=== PATIENT | female | born 1945 | race Caucasian/White ===

== ENCOUNTER → 2017-11-18 | Outpatient (CLI) | payer MEDICARE ==
[~2017-11-18] MED LIST: ADVI200T17 PO; ALBU6.7H INH; CALC1TAB87 PO; CHLO4TAB PO; FISHCAP4 PO; FLUT1INH INH; LIVA4TAB PO; MONT10TA2 PO; NEUR100C PO; TRAM50TA PO
[2017-11-18 11:20] LABS: HEMATOCRIT 38.7 % (35.0-46.0); HEMOGLOBIN 12.9 GM/DL (11.6-15.3); MEAN CELL VOLUME 92.1 FL (80.0-100.0); MEAN CORPUSCULAR HEMOGLOBIN 30.7 PG (27.0-34.0); MEAN CORPUSCULAR HGB CONC 33.3 % (32.0-36.0); MEAN PLATELET VOLUME 7.2 FL (7.0-11.0); PLATELET COUNT 388 TH/MM3 (150-450); RED CELL DISTRIBUTION WIDTH 13.6 % (11.6-17.2); WHITE BLOOD COUNT 6.9 TH/MM3 (4.0-11.0)
[2017-11-18 11:29] LABS: PROTHROMBIN TIME - PATIENT 10.1 SEC (9.8-11.6)
[2017-11-18 11:48] LABS: BILIRUBIN, URINE NEG (NEG); BLOOD, URINE TRACE (NEG); GLUCOSE,URINE NEG (NEG); KETONE, URINE NEG (NEG); NITRITE,URINE NEG (NEG); PH, URINE 5.5 (5.0-8.5); RENAL EPITHELIAL CELLS <1 /hpf; SQUAMOUS EPITHELIAL CELL URINE 1 /hpf (0-5); URINE LEUKOCYTE ESTERASE NEG (NEG)
[2017-11-18 11:49] LABS: URINE COLOR STRAW (YELLW/STRAW)
[2017-11-18 12:17] LABS: BICARBONATE 29.6 MEQ/L (21.0-32.0); CALCIUM 9.4 MG/DL (8.5-10.1); CREATININE 0.75 MG/DL (0.50-1.00)
== END ==
LOC: CPRE 09:57
PROVIDERS: ATTEND Orthopaedic Surgery
DX: Z01.812 Encounter for preprocedural laboratory examination (principal); M79.609 Pain in unspecified limb; M16.12 Unilateral primary osteoarthritis, left hip
CPT/HCPCS: 36415; 80048; 81001; 85027; 85610; 85730

== ENCOUNTER 2017-11-28 05:30 | Inpatient (IN) | payer MEDICARE ==
[~2017-11-28] VITALS: Ht 160 cm; Wt 70.5 kg
[~2017-11-28 05:30] MED LIST changes: -FLUT1INH INH
[2017-11-28] MEDS ORDERED: PROPOFOL 500 MG/50 ML INJ 50 ML ONE (05:58)
[2017-11-28] MEDS ORDERED: ACETAMINOPHEN 1000 MG/100 ML 100 ML IV ONE (05:58)
[2017-11-28] MEDS ORDERED: GENTAMICIN SULFATE 80 MG/2 ML VIAL ONE (05:59)
[2017-11-28] MEDS ORDERED: METOPROLOL TARTRATE 25 MG TAB PO PRN (06:00)
[2017-11-28] MEDS ORDERED: POVIDONE IODINE 5% (ANTISEPSIS KIT) 4 APPLICATIONS EACH NARE PRN (06:00)
[2017-11-28] MEDS ORDERED: CHLORHEXIDINE GLUCONATE 2 % 1 PACK (2 CLOTHS) TOPICAL PRN (06:00)
[2017-11-28] MEDS ORDERED: LACTATED RINGER'S 1000 ML IV PRN (06:00)
[2017-11-28] MEDS ORDERED: SODIUM CHLORID 0.9% 500 ML IV PRN (06:00)
[2017-11-28] MEDS ORDERED: FLUT1INH INH (06:10)
[2017-11-28] MEDS ORDERED: EXPAREL PERI-ARTICULAR INJECTION (TOTAL VOL. 60 ML) P-ARTICULR SCH ×2 (06:15)
[2017-11-28] MEDS ORDERED: ceFAZolin 2 GM PREMIX 50 ML IV SCH (06:15)
[2017-11-28] MEDS ORDERED: CHLORHEXIDINE GLUCONATE 4% SOLN 120 ML BTL TOPICAL SCH (06:15)
[2017-11-28] MEDS ORDERED: TRANEXAMIC ACID INJ 705 MG in SODIUM CHLORIDE 0.9% INJ 100 ML IV SCH ×4 (06:15)
[2017-11-28] MEDS ORDERED: BUPIVACAINE PF 0.75% DEX-WATER INJ 2 ML AMP ONE (06:22)
[2017-11-28] MEDS ORDERED: ALBUTEROL SULFATE 90 MCG/ACT HFA 8 GM INHALER INH PRN (06:45)
[2017-11-28] MEDS ORDERED: CHLORPHENIRAMINE 4 MG PO PRN (06:45)
[2017-11-28] MEDS ORDERED: GABAPENTIN 100 MG CAP PO SCH (09:00)
[2017-11-28] MEDS: MONTELUKAST SODIUM 10 MG TAB PO SCH (09:00)
[2017-11-28] MEDS ORDERED: NON-FORMULARY DRUG (Fish Oil-Cholecalciferol (Fish Oil + D3) 1 CAP) PO SCH (09:00)
[2017-11-28] MEDS: FLUTICASONE 100 MCG/VILANTEROL 25 MCG INHALER INH SCH (09:00)
[2017-11-28] MEDS ORDERED: HYDROmorphone HCL 2 MG TAB PO PRN (09:15)
[2017-11-28] MEDS ORDERED: Post-op Orders (for Pharmacy) XX ONE (09:15)
[2017-11-28] MEDS ORDERED: TRANEXAMIC ACID INJ 0 MG in SODIUM CHLORIDE 0.9% INJ 100 ML IV SCH (09:15)
[2017-11-28] MEDS ORDERED: BISACODYL 10 MG SUPP RECTAL PRN (09:15)
[2017-11-28] MEDS ORDERED: ONDANSETRON HCL 4 MG/2 ML VIAL IVP PRN (09:15)
[2017-11-28] MEDS ORDERED: HYDROmorphone HCL PF 2 MG/ML VIAL IV PUSH PRN (09:15)
[2017-11-28] MEDS ORDERED: ZOLPIDEM TARTRATE 5 MG TAB PO PRN (09:15)
--- NOTE | 2017-11-28 09:23 | HHI.FF ---
Face to Face Verification Diagnosis: (1) Status post total replacement of left hip Physical Therapy Hip: Total hip, Protocol: Left, Posterior hip precautions, Progress to weight bearing Canvas Knee Splint: When in bed & 2 pillows btw thighs Left LE Weight Bearing: WB as tolerated Left LE Range of Motion: Active ROM Nursing Nursing: Dressing changes Dressing Changes: Daily dressing change, Coverderm/Primapore Additional Instructions Do not remove the Dermabond Prinio. I have seen patient Arline Smiley on 11/28/17. My clinical findings support the need for the requested home health care services because: Ltd mobility - disease progression Limited ability to care for self High risk of falls I certify that my clinical findings support that this patient is homebound because: Post-op weakness Unsteady gait/balance Unsafe to leave home unassisted Ashlyn Melo MD (Charles) Nov 28, 2017 09:23
[2017-11-28] MEDS ORDERED: DO NOT ADM ANY ANTICOAGULANT DRUGS PRN (09:26)
--- NOTE | 2017-11-28 09:32 | PD.OP ---
Operative Report Date of Surgery: Nov 29, 2017 Preoperative Diagnosis: (1) Primary osteoarthritis of left hip Postoperative Diagnosis: (1) Primary osteoarthritis of left hip Procedure: Left total hip arthroplasty using [place] prosthesis. Anesthesia: Spinal with supplemental local with bupivacaine liposomal Surgeon: Colton Melo MD Test Specialist(s): ORACIO Lozano Operation and Findings: Indications and Findings: This 72-year-old woman has a 2-1/2 year history of progressively worsening pain in her left hip to the point that she has an ambulation tolerance of one half block. She has groin pain and lateral pain. She has difficulty with activities of daily living, especially standing from a seated position and vice versa as well as stair climbing. She uses a cart when she walks. She has not responded to conservative measures including anti- inflammatory agents intra-articular corticosteroids exercises ambulatory aids. Physical findings showed limited range of motion in the hip with tenderness on motion. She has an antalgic gait. X-rays show loss of articular cartilage and [id number] with osteophytes and irregularity in the femoral head. Operative findings showed that there was significant degenerative change with loss of articular cartilage with [id number]-[id number], osteophytes and eburnation. The prosthesis used was a Erika prosthesis with the acetabulum being a Tritanium cluster shell size 48 mm outer diameter with an X3 polyethylene 0 liner with a 32 mm inner diameter. The femoral component was an Accolade 2 femoral stem with a 132 neck angle, size 2. The femoral head was a Biolox delta 32 mm outer diameter with a -4 mm neck length. The patient was brought to the clean air operating suite and a spinal anesthetic was administered. The patient was then positioned into a lateral position with the left hip up on a [email or web address] lateral positioner. The hip and lower extremity were then prepped with alcohol, Hibiclens and ChloraPrep and draped in the usual manner with the hip draped free. Patient received prophylactic antibiotics preoperatively. The patient also received tranexamic acid preoperatively. An appropriate timeout procedure was carried out. An incision was then made from the midportion of the greater trochanter proximally and posteriorly paralleling the fibers of the gluteus araceli. The incision was deepened through subcutaneous tissues down to the fascia alejandro and gluteus fascia. The gluteus fascia was then split longitudinally in line with its fibers up to the upper portion of the fascia alejandro. With wound towels in place, the Charnley retractor was inserted. The sciatic nerve was identified and protected throughout the procedure. Dissection was then carried down to the interval between the gluteus minimus and the piriformis. A retractor was inserted. The piriformis and obturator conjoined tendon was released from the greater trochanter and reflected off the capsule. A capsulotomy was made longitudinally along the femoral neck to the base of the femoral neck and then curved distally along the posterior aspect of the greater trochanter. The hip was then internally rotated. Further release of the external rotators was carried out exposing the hip. The hip was then dislocated. The femoral neck was transected at the appropriate level using the oscillating saw placement of appropriate retractors. The femoral head was then removed. Preparation of the femur was initiated with a box osteotome followed by a curet to identify the medullary canal. Broaching was then initiated with the size 0 broach and went and 1 size increments up to size 2. The broach handle was removed. The femoral neck was then trimmed with a calcar planar. Attention was then directed to the acetabulum. Soft tissues were debrided from the acetabulum. Retractors were placed about the acetabulum. Reaming was then initiated with the 41 millimeter reamer and went in 2 mm increments up to the 45 millimeter diameter reamer after which reaming went in 1 mm increments to size 47 mm. A trial reduction with the 48 millimeter trial prosthesis was carried out. When this was deemed to be appropriate, the trial prosthesis was removed. The acetabulum was then irrigated and cleaned. The actual prosthesis as noted above was then impacted into place and seated appropriately. Drill holes were then made and sounded. Appropriate sized screws were then inserted to stabilize the acetabulum further. The liner as noted above was then inserted into the acetabular shell and impacted into place. Osteophytes were trimmed from the acetabulum. Local anesthetic was then administered throughout the area of the acetabulum and anterior aspect of the femur. The trial neck was then placed on the broach for the above-noted prosthesis. The femoral head trial was placed onto the femoral neck with the external diameter of the head being 32 millimeters and the neck length being -4 millimeters. A trial reduction was then carried out. The stability, leg length and motion were excellent. There was no pistoning. The trial prosthesis was removed. The broach was removed. The femoral component was then impacted into the medullary canal of the femur after irrigation and suctioning. When this was appropriately seated a trial reduction was again carried out with the trial prosthesis. Again, there was no pistoning. The leg length was appropriate. The stability and motion were excellent. The trial prosthesis was then removed. After cleaning and drying the trunion of the femoral component, the above-noted femoral head was impacted onto the trunnion. The hip was then reduced. The stability and mobility were again checked along with leg lengths as noted above. The hip was then positioned appropriately and closure commenced after the remainder of the local anesthetic was injected throughout the hip. The external rotators and capsule were then repaired with #1 Vicryl interrupted transosseous sutures with a Krakw technique to reattach the external rotators and capsule to the posterior aspect of the greater trochanter. The capsule itself on the superior aspect was closed with #1 Vicryl interrupted [id number] sutures. The sciatic nerve was again inspected. The fascia alejandro and gluteus fascia were then repaired with #1 Vicryl interrupted [id number] sutures. The subcutaneous tissues were closed with 2-0 Vicryl interrupted simple sutures with buried knots. The skin was closed with a continuous subcuticular closure of 4-0 Monocryl. The wound was then approximated with Dermabond Prineo. A dry dressing was applied to the hip. A knee immobilizer was applied to the leg. The patient was then transferred from the operating room to the recovery room in satisfactory condition having tolerated the procedure well. Counts are correct. Specimens: None. Estimated blood loss: 200 mL Ashlyn Melo MD (Charles) Nov 28, 2017 09:32
[2017-11-28] MEDS ORDERED: MIDAZOLAM HCL 2 MG/2 ML VIAL ONE (09:37)
[2017-11-28] MEDS ORDERED: HYDROmorphone HCL PF 0.5 MG/0.5 ML SYRINGE ONE ×2 (09:48→11:41)
[2017-11-28] MEDS: LACTATED RINGER'S 1000 ML INJ 1,000 ML IV SCH ×2 (10:00→21:44)
--- NOTE | 2017-11-28 11:03 | RADRPT ---
EXAM DATE/TIME: 11/28/2017 09:42 [facility] COMPARISON: No previous studies available for comparison. INDICATIONS : Post op left hip MEDICAL HISTORY : None. SURGICAL HISTORY : None. ENCOUNTER: Initial ACUITY: 1 day PAIN SCORE: Non-responsive. LOCATION: Left hip FINDINGS: The patient is status post a total hip arthroplasty with a bipolar prosthesis. Prosthesis is well-sea maye. Alignment is anatomic. A fracture is not appreciated. CONCLUSION: Anatomic alignment. Mark Garcia MD FACR Board Certified Radiologist. This report was verified electronically.
[2017-11-28] MEDS ORDERED: MAGNESIUM HYDROXIDE SUSP 30 ML CUP PO PRN (12:30)
[2017-11-28] MEDS ORDERED: PILL SPLITTER OTHER PRN (14:45)
[2017-11-28] MEDS: traMADol HCL 50 MG TAB PO PRN ×2 (16:00→23:23)
[2017-11-28 16:07] VITALS: BP 146/66; PULSE 115; RESP 17; TEMP 98.3; O2SAT 94
--- NOTE | 2017-11-28 16:45 | PD.CONS ---
HPI Service [facility] Consult Requested By Dr. Melo Reason for Consult Medical management Primary Care Physician Netta Iyer MD Diagnoses: History of Present Illness The patient is a 72-year-old female with past medical history of arthritis and hypertension who is presenting to the hospital for elective left hip arthroplasty. The patient says that about a year ago she came down with left hip pain. She says her pain got worse starting this past April. She says she has been doing a lot of hiking and climbing places such as [place] and the [employer]. Her hip pain seemed to get worse secondary to that. She has been taking Advil for pain control. She got a Kenalog injection. She worked with physical therapy. She also has been experiencing nerve pain. She decided to get her hip repaired. She tolerated the surgery without any problem. She is not nauseous. Her pain is controlled. She had a bowel movement yesterday. She already worked with physical therapy. Discussed with family. Review of Systems Except as stated in HPI: all other systems reviewed are Neg Past Family Social History Allergies: Coded Allergies: [place] Dust (Verified Allergy, Severe, Wheezing, 11/28/17) Smoke (Verified Allergy, Severe, Wheezing, 11/28/17) Sulfa (Sulfonamide Antibiotics) (Verified Allergy, Severe, Shortness of Breath, 11/28/17) adhesive tape (Verified Allergy, Severe, Rash, 11/28/17) aspartame (Verified Allergy, Severe, Hives, 11/28/17) aspirin (Verified Allergy, Severe, Dyspepsia, 11/28/17) cat dander (Verified Allergy, Severe, Wheezing, 11/28/17) codeine (Verified Allergy, Severe, Irritation, 11/28/17) vomiting, hallucinations diphenhydramine (Verified Allergy, Severe, Cramping, 11/28/17) hydrocodone (Verified Allergy, Severe, Itching, 11/28/17) vomiting, hallucinations losartan (Verified Allergy, Severe, Cramping, 11/28/17) meloxicam (Verified Allergy, Severe, 11/28/17) pelvic pain nitrofurantoin (Verified Allergy, Severe, Shortness of Breath, 11/28/17) chest pain omeprazole (Verified Allergy, Severe, Hives, 11/28/17) oxycodone (Verified Allergy, Severe, Itching, 11/28/17) vomiting, hallucinations oyster extract (Verified Allergy, Severe, Chest Pain, 11/28/17) shortness of breath, temp pollen extracts (Verified Allergy, Severe, Hives, 11/28/17) simvastatin (Verified Allergy, Severe, Cramping, 11/28/17) soy (Verified Allergy, Severe, Hives, 11/28/17) chlorhexidine (Verified Allergy, Unknown, Rash, 11/28/17) Past Medical History Hypertension Hyperlipidemia Osteoarthritis Asthma Pulmonary embolism Neuropathy Active Ordered Medications Current Medications Medications (Trade) Dose Ordered Sig/Pepito Route Start Time Stop Time Status Last Admin (Lopressor) 25 mg SUPERVISOR FRAME SAMPLE AND PATTERN PRN PO 11/28/17 06:00 12/01/17 05:59 (Betadine 5% Antisepsis Kit) 1 applic SUPERVISOR FRAME SAMPLE AND PATTERN PRN EACH NARE 11/28/17 06:00 12/01/17 05:59 11/28/17 06:31 (Chlorhexidine 2% Cloth) 3 pack SUPERVISOR FRAME SAMPLE AND PATTERN PRN TOPICAL 11/28/17 06:00 12/01/17 05:59 (Hibiclens 4% Top Soln) 1 applic ONCE TOPICAL 11/28/17 06:15 12/01/17 06:14 Cefazolin Sodium/ Dextrose 50 ml @ 100 mls/hr SUPERVISOR FRAME SAMPLE AND PATTERN IV 11/28/17 06:15 12/01/17 06:14 11/28/17 07:10 (Proair Hfa Inh) 2 puff Q4HR NEB PRN INH 11/28/17 06:45 (Breo Ellipta 100-25 Inh) 1 puff DAILY INH 11/28/17 09:00 (Neurontin) 200 mg BID PO 11/28/17 09:00 (Singulair) 10 mg DAILY PO 11/28/17 09:00 Patient Own Medication PT OWN MED: LIVALO (PITAVASTAT... HS PO 11/28/17 21:00 Future Hold Lactated Ringer's 1,000 ml @ 80 mls/hr [id number] IV 11/28/17 09:14 11/28/17 10:00 Cefazolin Sodium 1000 mg/Sodium Chloride 100 ml @ 200 mls/hr Q6H IV 11/28/17 13:00 11/29/17 01:29 11/28/17 15:00 (Dilaudid Pf Inj) 0.5 mg Q3H PRN IV PUSH 11/28/17 09:15 (Ultram) 50 mg Q4H PRN PO 11/28/17 09:15 11/28/17 16:00 (Toradol Inj) 15 mg Q6H IVP 11/28/17 16:30 11/30/17 10:31 (Zofran Inj) 4 mg Q6H PRN IVP 11/28/17 09:15 (Colace) 100 mg BID PO 11/29/17 21:00 (Ambien) 5 mg HS PRN PO 11/28/17 09:15 (Dulcolax Supp) 10 mg DAILY PRN RECTAL 11/28/17 09:15 (Milk Of Magnesia Liq) 30 ml DAILY PRN PO 11/28/17 12:30 (Ecotrin Ec) 81 mg BIDAC PO 11/29/17 08:30 (Dilaudid) 1 mg Q4H PRN PO 11/28/17 09:15 11/28/17 14:55 Miscellaneous Information ALL NURSING DEPARTME... UNSCH PRN .XX 11/28/17 09:26 11/29/17 09:25 (Pill Splitter) 1 ea UNSCH PRN OTHER 11/28/17 14:45 Family History CAD Social History The patient quit smoking in the s. She drinks 1 cocktail daily. Physical Exam Vital Signs Vital Signs Date Time Temp Pulse Resp B/P (MAP) Pulse Ox O2 Delivery O2 Flow Rate FiO2 11/28/17 16:07 98.3 115 17 146/66 (92) 94 11/28/17 15:00 97.9 84 18 154/68 (96) 96 Nasal Cannula 2 11/28/17 14:00 78 18 135/68 (90) 96 Nasal Cannula 2 11/28/17 13:00 97.7 87 18 143/62 (89) 96 Nasal Cannula 2 11/28/17 12:00 68 18 137/63 (87) 90 Nasal Cannula 2 11/28/17 11:30 65 18 141/65 (90) 96 Room Air 11/28/17 11:15 68 18 148/65 (92) 96 Room Air 11/28/17 11:00 68 18 148/65 (92) 96 Room Air 11/28/17 10:45 66 18 128/77 (94) 96 Room Air 11/28/17 10:31 97.4 11/28/17 10:31 97.4 67 18 148/65 (92) 96 Room Air 11/28/17 10:15 59 18 136/60 (85) 95 Room Air 11/28/17 10:00 60 18 109/53 (71) 94 Room Air 11/28/17 09:45 63 18 139/65 (89) 100 Room Air 11/28/17 09:29 61 16 154/66 (95) 99 Simple Mask 6 11/28/17 06:24 98.1 78 18 158/76 (103) 96 Physical Exam GENERAL: This is a well-nourished, well-developed patient, in no apparent distress. SKIN: No rashes, ecchymoses or lesions. Cool and dry. HEAD: Atraumatic. Normocephalic. No temporal or scalp tenderness. EYES: Pupils equal round and reactive. Extraocular motions intact. No scleral icterus. No injection or drainage. ENT: Nose without bleeding, purulent drainage or septal hematoma. Throat without erythema, tonsillar hypertrophy or exudate. Uvula midline. Airway patent. NECK: Trachea midline. No JVD or lymphadenopathy. Supple, nontender, no meningeal signs. CARDIOVASCULAR: Regular rate and rhythm without murmurs, gallops, or rubs. RESPIRATORY: Clear to auscultation. Breath sounds equal bilaterally. No wheezes , rales, or rhonchi. GASTROINTESTINAL: Abdomen soft, non-tender, nondistended. No hepato-splenomegaly , or palpable masses. No guarding. MUSCULOSKELETAL: Left leg currently in splint. Nontender to palpation. No edema in the right lower extremity. NEUROLOGICAL: Awake and alert. Cranial nerves II through XII intact. Motor and sensory grossly within normal limits. Five out of 5 muscle strength in all muscle groups. Normal speech. PSYCH: Mood and affect appropriate. Imaging Last Impressions Hip X-Ray 11/28/17 0914 Signed Impressions: Service Date/Time: Tuesday, November 28, 2017 09:42 - CONCLUSION: Anatomic alignment. Mark Garcia MD Assessment and Plan Assessment and Plan Osteoarthritis S/p left hip arthroplasty 11/28. - weightbearing, wound care and anticoagulation per orthopedic surgery. - pain control with a bowel regimen. - follow h/h. - incentive spirometry. - rehab efforts. HTN Blood pressure elevated s/t surgery. - pain control as needed. - allergic to most blood pressure meds. Asthma No complaints of dyspnea. - Proair and oxygen as needed. Neuropathy On gabapentin as an outpt. She still complains of nerve pain. - increase dose to 300 mg TID. PPx: Per ortho Discussed Condition With Pt, family Kraig Crain DO Nov 28, 2017 16:45
[2017-11-28] MEDS: KETOROLAC TROMETHAMINE 30 MG/ML (IVP) VIAL IVP SCH ×2 (17:46→23:24)
[2017-11-28] MEDS: GABAPENTIN 100 MG CAP PO SCH (17:57)
[2017-11-28 19:54] VITALS: BP 149/67; PULSE 97; RESP 18; TEMP 98.2; O2SAT 93
[2017-11-28] MEDS ORDERED: PITAVASTATIN PO SCH (21:00)
[2017-11-28 23:17] VITALS: BP 134/62; PULSE 88; RESP 18; TEMP 98.1; O2SAT 95
[2017-11-29] MEDS: KETOROLAC TROMETHAMINE 30 MG/ML (IVP) VIAL IVP SCH ×4 (04:44→21:45)
[2017-11-29] MEDS: traMADol HCL 50 MG TAB PO PRN ×3 (04:45→16:51)
[2017-11-29 05:25] VITALS: BP 190/79; PULSE 77; RESP 18; TEMP 98.2; O2SAT 93
--- NOTE | 2017-11-29 05:53 | PD.ORT.PN ---
Subjective Post Op Day #: 1 Subjective Remarks She is doing relatively well but does continue to have some pain. She has pain whenever she moves but not much when she is still. This has been relatively well controlled with the medications ordered. She has avoided Dilaudid. Distance Walked 20 feet with PT. Objective Vitals Vital Signs Date Time Temp Pulse Resp B/P (MAP) Pulse Ox O2 Delivery O2 Flow Rate FiO2 11/28/17 23:17 98.1 88 18 134/62 (86) 95 11/28/17 19:54 98.2 97 18 149/67 (94) 93 11/28/17 16:07 98.3 115 17 146/66 (92) 94 11/28/17 15:00 97.9 84 18 154/68 (96) 96 Nasal Cannula 2 11/28/17 14:00 78 18 135/68 (90) 96 Nasal Cannula 2 11/28/17 13:00 97.7 87 18 143/62 (89) 96 Nasal Cannula 2 11/28/17 12:00 68 18 137/63 (87) 90 Nasal Cannula 2 11/28/17 11:30 65 18 141/65 (90) 96 Room Air 11/28/17 11:15 68 18 148/65 (92) 96 Room Air 11/28/17 11:00 68 18 148/65 (92) 96 Room Air 11/28/17 10:45 66 18 128/77 (94) 96 Room Air 11/28/17 10:31 97.4 11/28/17 10:31 97.4 67 18 148/65 (92) 96 Room Air 11/28/17 10:15 59 18 136/60 (85) 95 Room Air 11/28/17 10:00 60 18 109/53 (71) 94 Room Air 11/28/17 09:45 63 18 139/65 (89) 100 Room Air 11/28/17 09:29 61 16 154/66 (95) 99 Simple Mask 6 11/28/17 06:24 98.1 78 18 158/76 (103) 96 I/O 11/28/17 11/28/17 11/28/17 11/29/17 11/29/17 11/29/17 07:00 15:00 23:00 07:00 15:00 23:00 Intake Total 3307 ml 800 ml Output Total 200 ml 300 ml Balance 3107 ml 500 ml Intake Oral 500 ml IV Total 3307 ml 300 ml Output Urine Total 300 ml Estimated Blood Loss 200 ml # Voids 1 1 Imaging Last 24 hours Impressions Hip X-Ray 11/28/17 0914 Signed Impressions: Service Date/Time: Tuesday, November 28, 2017 09:42 - CONCLUSION: Anatomic alignment. Mark Garcia MD Objective Remarks She is resting comfortably, supine in bed. The neurovascular status is intact. The dressing is dry and intact. Assessment & Plan Ortho Post Op Day #: 1 Problem List: (1) Primary osteoarthritis of left hip ICD Codes: M16.12 - Unilateral primary osteoarthritis, left hip Status: Resolved (2) Status post total replacement of left hip ICD Codes: Z96.642 - Presence of left artificial hip joint Plan: Continue postop care and PT. Assessment and Plan Condition: Good. Orthopedically stable. DVT prophylaxis: TEDs, aspirin, sequentials. We have discussed the use of aspirin. She has had gastrointestinal problems with it in the past and, other than when she was or using Prempro, she has had no problems with DVT. She has previously been on aspirin 81 mg twice a week. This will probably be adequate for her. Discharge plans: Home with home health care, probably tomorrow but possibly today. An appointment was scheduled through the office. Prescriptions: Tramadol 50 mg. We have discussed the use of analgesics. She is reluctant to use Dilaudid and seems to do fairly well with her gabapentin and tramadol. For this reason, we will continue with this after discharge. Ashlyn Melo MD (Charles) Nov 29, 2017 05:53
[2017-11-29 07:02] LABS: HEMATOCRIT 32.2 % (35.0-46.0); HEMOGLOBIN 10.7 GM/DL (11.6-15.3)
[2017-11-29 08:17] VITALS: BP 156/68; PULSE 72; RESP 18; TEMP 98; O2SAT 96
[2017-11-29] MEDS: FLUTICASONE 100 MCG/VILANTEROL 25 MCG INHALER INH SCH (09:00)
[2017-11-29] MEDS: MONTELUKAST SODIUM 10 MG TAB PO SCH (09:18)
[2017-11-29] MEDS: GABAPENTIN 100 MG CAP PO SCH ×3 (09:18→16:52)
[2017-11-29] MEDS: ASPIRIN EC 81 MG TABEC PO SCH ×2 (09:21→16:52)
[2017-11-29] MEDS: LACTATED RINGER'S 1000 ML INJ 1,000 ML IV SCH ×2 (10:14→22:44)
[2017-11-29 11:56] VITALS: BP 149/65; PULSE 71; RESP 17; TEMP 98.3; O2SAT 95
--- NOTE | 2017-11-29 12:01 | HHI.PR ---
Subjective Remarks The patient is a 72-year-old female with past medical history of arthritis and hypertension who is presenting to the hospital for elective left hip arthroplasty. The patient says that about a year ago she came down with left hip pain. She says her pain got worse starting this past April. She says she has been doing a lot of hiking and climbing places such as [place] and the [place]. Her hip pain seemed to get worse secondary to that. She has been taking Advil for pain control. She got a Kenalog injection. She worked with physical therapy. She also has been experiencing nerve pain. She decided to get her hip repaired. She tolerated the surgery without any problem. She is not nauseous. Her pain is controlled. She had a bowel movement yesterday. She already worked with physical therapy. Discussed with family. 11-29 SEEN IN HER ROOM SOME PAIN IN LEFT HIP NO SOB, NO CHEST PAIN, NO PALPITATIONS DW RN AND CM AND PATIENT Objective Vitals Vital Signs Date Time Temp Pulse Resp B/P (MAP) Pulse Ox O2 Delivery O2 Flow Rate FiO2 11/29/17 08:17 98.0 72 18 156/68 (97) 96 11/29/17 05:25 98.2 77 18 190/79 (116) 93 11/28/17 23:17 98.1 88 18 134/62 (86) 95 11/28/17 19:54 98.2 97 18 149/67 (94) 93 11/28/17 16:07 98.3 115 17 146/66 (92) 94 11/28/17 15:00 97.9 84 18 154/68 (96) 96 Nasal Cannula 2 11/28/17 14:00 78 18 135/68 (90) 96 Nasal Cannula 2 11/28/17 13:00 97.7 87 18 143/62 (89) 96 Nasal Cannula 2 11/28/17 12:00 68 18 137/63 (87) 90 Nasal Cannula 2 I/O 11/28/17 11/28/17 11/28/17 11/29/17 11/29/17 11/29/17 07:00 15:00 23:00 07:00 15:00 23:00 Intake Total 3307 ml 800 ml 360 ml Output Total 200 ml 300 ml Balance 3107 ml 500 ml 360 ml Intake Oral 500 ml 360 ml IV Total 3307 ml 300 ml Output Urine Total 300 ml Estimated Blood Loss 200 ml # Voids 1 1 2 # Bowel Movements 0 Result Diagram: 11/29/17613 Other Results Laboratory Tests Test 11/29/17 06:14 Hemoglobin 10.7 GM/DL Hematocrit 32.2 % Imaging Last Impressions Hip X-Ray 11/28/17913 Signed Impressions: Service Date/Time: Tuesday, November 28, 2017 09:42 - CONCLUSION: Anatomic alignment. Mark Garcia MD Objective Remarks GENERAL: Awake alert and oriented 3 talkative and cooperative SKIN: Warm and dry. Some facial flushing HEAD: Atraumatic. Normocephalic. EYES: Pupils equal and round. No scleral icterus. No injection or drainage. Extraocular muscles intact ENT: No nasal bleeding or discharge. Mucous membranes pink and moist. Tongue is midline NECK: Trachea midline. No JVD. Supple CARDIOVASCULAR: Regular rate and rhythm. S1-S2 no S3-S4 RESPIRATORY: No accessory muscle use. Clear to auscultation. Breath sounds equal bilaterally. GASTROINTESTINAL: Abdomen soft, non-tender, nondistended. Hepatic and splenic margins not palpable. MUSCULOSKELETAL: Extremities without clubbing, cyanosis, or edema. No obvious deformities. NEUROLOGICAL: Awake and alert. No obvious cranial nerve deficits. Motor grossly within normal limits. Five out of 5 muscle strength in the arms and legs. Normal speech. PSYCHIATRIC: Appropriate mood and affect; insight and judgment normal. Procedures Date of Surgery: Nov 28, 2017 Preoperative Diagnosis: (1) Primary osteoarthritis of left hip Postoperative Diagnosis: (1) Primary osteoarthritis of left hip Procedure: Left total hip arthroplasty using [place] prosthesis. Anesthesia: Spinal with supplemental local with bupivacaine liposomal Surgeon: Colton Melo MD Manager Front(s): ORACIO Lozano Operation and Findings: Indications and Findings: This 72-year-old woman has a 2-1/2 year history of progressively worsening pain in her left hip to the point that she has an ambulation tolerance of one half block. She has groin pain and lateral pain. She has difficulty with activities of daily living, especially standing from a seated position and vice versa as well as stair climbing. She uses a cart when she walks. She has not responded to conservative measures including anti- inflammatory agents intra-articular corticosteroids exercises ambulatory aids. Physical findings showed limited range of motion in the hip with tenderness on motion. She has an antalgic gait. X-rays show loss of articular cartilage and [id number] with osteophytes and irregularity in the femoral head. Operative findings showed that there was significant degenerative change with loss of articular cartilage with [id number], osteophytes and eburnation. The prosthesis used was a Erika prosthesis with the acetabulum being a Tritanium cluster shell size 48 mm outer diameter with an X3 polyethylene 0 liner with a 32 mm inner diameter. The femoral component was an Accolade 2 femoral stem with a 132 neck angle, size 2. The femoral head was a Biolox delta 32 mm outer diameter with a -4 mm neck length. The patient was brought to the clean air operating suite and a spinal anesthetic was administered. The patient was then positioned into a lateral position with the left hip up on a ContraFect lateral positioner. The hip and lower extremity were then prepped with alcohol, Hibiclens and ChloraPrep and draped in the usual manner with the hip draped free. Patient received prophylactic antibiotics preoperatively. The patient also received tranexamic acid preoperatively. An appropriate timeout procedure was carried out. An incision was then made from the midportion of the greater trochanter proximally and posteriorly paralleling the fibers of the gluteus araceli. The incision was deepened through subcutaneous tissues down to the fascia alejandro and gluteus fascia. The gluteus fascia was then split longitudinally in line with its fibers up to the upper portion of the fascia alejandro. With wound towels in place, the Charnley retractor was inserted. The sciatic nerve was identified and protected throughout the procedure. Dissection was then carried down to the interval between the gluteus minimus and the piriformis. A retractor was inserted. The piriformis and obturator conjoined tendon was released from the greater trochanter and reflected off the capsule. A capsulotomy was made longitudinally along the femoral neck to the base of the femoral neck and then curved distally along the posterior aspect of the greater trochanter. The hip was then internally rotated. Further release of the external rotators was carried out exposing the hip. The hip was then dislocated. The femoral neck was transected at the appropriate level using the oscillating saw placement of appropriate retractors. The femoral head was then removed. Preparation of the femur was initiated with a box osteotome followed by a curet to identify the medullary canal. Broaching was then initiated with the size 0 broach and went and 1 size increments up to size 2. The broach handle was removed. The femoral neck was then trimmed with a calcar planar. Attention was then directed to the acetabulum. Soft tissues were debrided from the acetabulum. Retractors were placed about the acetabulum. Reaming was then initiated with the 41 millimeter reamer and went in 2 mm increments up to the 45 millimeter diameter reamer after which reaming went in 1 mm increments to size 47 mm. A trial reduction with the 48 millimeter trial prosthesis was carried out. When this was deemed to be appropriate, the trial prosthesis was removed. The acetabulum was then irrigated and cleaned. The actual prosthesis as noted above was then impacted into place and seated appropriately. Drill holes were then made and sounded. Appropriate sized screws were then inserted to stabilize the acetabulum further. The liner as noted above was then inserted into the acetabular shell and impacted into place. Osteophytes were trimmed from the acetabulum. Local anesthetic was then administered throughout the area of the acetabulum and anterior aspect of the femur. The trial neck was then placed on the broach for the above-noted prosthesis. The femoral head trial was placed onto the femoral neck with the external diameter of the head being 32 millimeters and the neck length being -4 millimeters. A trial reduction was then carried out. The stability, leg length and motion were excellent. There was no pistoning. The trial prosthesis was removed. The broach was removed. The femoral component was then impacted into the medullary canal of the femur after irrigation and suctioning. When this was appropriately seated a trial reduction was again carried out with the trial prosthesis. Again, there was no pistoning. The leg length was appropriate. The stability and motion were excellent. The trial prosthesis was then removed. After cleaning and drying the trunion of the femoral component, the above-noted femoral head was impacted onto the trunnion. The hip was then reduced. The stability and mobility were again checked along with leg lengths as noted above. The hip was then positioned appropriately and closure commenced after the remainder of the local anesthetic was injected throughout the hip. The external rotators and capsule were then repaired with #1 Vicryl interrupted transosseous sutures with a Krakw technique to reattach the external rotators and capsule to the posterior aspect of the greater trochanter. The capsule itself on the superior aspect was closed with #1 Vicryl interrupted [id number] sutures. The sciatic nerve was again inspected. The fascia alejandro and gluteus fascia were then repaired with #1 Vicryl interrupted [id number] sutures. The subcutaneous tissues were closed with 2-0 Vicryl interrupted simple sutures with buried knots. The skin was closed with a continuous subcuticular closure of 4-0 Monocryl. The wound was then approximated with Dermabond Prineo. A dry dressing was applied to the hip. A knee immobilizer was applied to the leg. The patient was then transferred from the operating room to the recovery room in satisfactory condition having tolerated the procedure well. Counts are correct. Specimens: None. Estimated blood loss: 200 mL Ashlyn Melo MD ([facility]) Medications and IVs Current Medications Lactated Ringer's 1,000 ml @ 30 mls/hr Q24H PRN IV SEE LABEL COMMENTS Last administered on 11/28/17at 06:00; Start 11/28/17 at 06:00; Stop 11/28/17 at 10:41 ; Status DC Sodium Chloride 500 ml @ 30 mls/hr [id number] PRN IV SEE LABEL COMMENTS; Start at 06:00; Stop 11/28/17 at 10:41; Status DC Metoprolol Tartrate (Lopressor) 25 mg SECURITIES COMPLIANCE EXAMINER PRN PO SEE LABEL COMMENTS; Start 11/28/17 at 06:00; Stop 12/01/17 at 05:59 Povidone Iodine (Betadine 5% Antisepsis Kit) 1 applic SECURITIES COMPLIANCE EXAMINER PRN EACH NARE SEE LABEL COMMENTS Last administered on 11/28/17at 06:31; Start 11/28/17 at 06:00 ; Stop 12/01/17 at 05:59 Chlorhexidine Gluconate (Chlorhexidine 2% Cloth) 3 pack SECURITIES COMPLIANCE EXAMINER PRN TOPICAL SEE LABEL COMMENTS; Start 11/28/17 at 06:00; Stop 12/01/17 at 05:59 Acetaminophen 100 ml @ As Directed STK-MED ONCE IV ; Start 11/28/17 at 05:58; Stop 11/28/17 at 05:59; Status DC Propofol 50 ml @ As Directed STK-MED ONCE .ROUTE ; Start 11/28/17 at 05:58; Stop 11/28/17 at 05:59; Status DC Chlorhexidine Gluconate (Hibiclens 4% Top Soln) 1 applic ONCE TOPICAL ; Start at 06:15; Stop 12/01/17 at 06:14 Cefazolin Sodium/ Dextrose 50 ml @ 100 mls/hr SECURITIES COMPLIANCE EXAMINER IV Last administered on 11/28/17at 07:10; Start 11/28/17 at 06:15; Stop 12/01/17 at 06:14 Tranexamic Acid 705 mg/Sodium Chloride 107.05 ml @ 200 mls/ hr ONCE IV Last administered on 11/28/17at 06:58; Start 11/28/17 at 06:15; Stop 11/28/17 at 14:00 ; Status DC Tranexamic Acid 705 mg/Sodium Chloride 107.05 ml @ 200 mls/ hr ONCE IV Last administered on 11/28/17at 11:09; Start 11/28/17 at 06:15; Stop 11/28/17 at 15:00 ; Status DC Bupivacaine Liposome 20 ml/ Sodium Chloride 60 ml @ 120 mls/hr ONCE P-ARTICULR Last administered on 11/28/17at 07:29; Start 11/28/17 at 06:15; Stop 11/28/17 at 14:00; Status DC Gentamicin Sulfate (Gentamicin Inj) 240 mg STK-MED ONCE .ROUTE Last administered on 11/28/17at 07:29; Start 11/28/17 at 05:59; Stop 11/28/17 at 06:00 ; Status DC Bupivacaine HCl/ Dextrose (Marcaine Spinal Inj) 2 ml STK-MED ONCE .ROUTE ; Start 11/28/17 at 06:22; Stop 11/28/17 at 06:23; Status DC Albuterol Sulfate (Proair Hfa Inh) 2 puff Q4HR NEB PRN INH SHORTNESS OF BREATH ; Start 11/28/17 at 06:45 Fluticasone/ Vilanterol (Breo Ellipta 100-25 Inh) 1 puff DAILY INH ; Start 11/28 at 09:00 Gabapentin (Neurontin) 200 mg BID PO ; Start 11/28/17 at 09:00; Stop 11/28/17 at 16:46; Status DC Montelukast Sodium (Singulair) 10 mg DAILY PO Last administered on 11/29/17at 09 :18; Start 11/28/17 at 09:00 Non-Formulary Medication 4 mg Q4H PRN PO Allergies; Start 11/28/17 at 06:45; Stop 11/28/17 at 08:51; Status DC Non-Formulary Medication 1 cap DAILY PO ; Start 11/28/17 at 09:00; Stop at 09:00; Status DC Patient Own Medication PT OWN MED: LIVALO (PITAVASTAT... HS PO ; Start 11/28/17 at 21:00; Status Future Hold Lactated Ringer's 1,000 ml @ 80 mls/hr [id number] IV Last administered on at 10:00; Start 11/28/17 at 09:14 Cefazolin Sodium 1000 mg/Sodium Chloride 100 ml @ 200 mls/hr Q6H IV Last administered on 11/29/17at 00:59; Start 11/28/17 at 13:00; Stop 11/29/17 at 01:29 ; Status DC Miscellaneous Information (Post-op Orders (for Pharmacy)) STAT ONCE XX ; Start 11/28/17 at 09:15; Stop 11/28/17 at 12:07; Status DC Hydromorphone HCl (Dilaudid Pf Inj) 0.5 mg Q3H PRN IV PUSH BREAKTHROUGH PAIN; Start 11/28/17 at 09:15 Tramadol HCl (Ultram) 50 mg Q4H PRN PO PAIN LESS THAN 5 ON SCALE Last administered on 11/29/17at 09:20; Start 11/28/17 at 09:15 Ketorolac Tromethamine (Toradol Inj) 15 mg Q6H IVP Last administered on at 04:44; Start 11/28/17 at 16:30; Stop 11/30/17 at 10:31 Tranexamic Acid / Sodium Chloride 100 ml @ 200 mls/hr UNSCH IV ; Start at 09:15; Stop 11/28/17 at 10:53; Status DC Ondansetron HCl (Zofran Inj) 4 mg Q6H PRN IVP NAUSEA OR VOMITING; Start at 09:15 Docusate Sodium (Colace) 100 mg BID PO ; Start 11/29/17 at 21:00 Zolpidem Tartrate (Ambien) 5 mg HS PRN PO SLEEP; Start 11/28/17 at 09:15 Bisacodyl (Dulcolax Supp) 10 mg DAILY PRN RECTAL CONSTIPATION; Start 11/28/17 at 09:15 Magnesium Hydroxide (Milk Of Magnarpan Liq) 30 ml DAILY PRN PO CONSTIPATION; Start 11/28/17 at 12:30 Aspirin (Ecotrin Ec) 81 mg BIDAC PO Last administered on 11/29/17at 09:21; Start 11/29/17 at 08:30 Hydromorphone HCl (Dilaudid) 1 mg Q4H PRN PO PAIN GREATER THAN 5 Last administered on 11/28/17at 14:55; Start 11/28/17 at 09:15 Midazolam HCl (Versed Inj) 2 mg STK-MED ONCE .ROUTE ; Start 11/28/17 at 09:37; Stop 11/28/17 at 09:38; Status DC Miscellaneous Information ALL NURSING DEPARTME... UNSCH PRN .XX SEE LABEL COMMENTS; Start 11/28/17 at 09:26; Stop 11/29/17 at 09:25; Status DC Hydromorphone HCl (Dilaudid Pf Inj) 0.5 mg STK-MED ONCE .ROUTE Last administered on 11/28/17at 09:48; Start 11/28/17 at 09:48; Stop 11/28/17 at 09:49 ; Status DC Hydromorphone HCl (Dilaudid Pf Inj) 0.5 mg STK-MED ONCE .ROUTE Last administered on 11/28/17at 11:41; Start 11/28/17 at 11:41; Stop 11/28/17 at 11:42 ; Status DC Miscellaneous (Pill Splitter) 1 ea UNSCH PRN OTHER SEE LABEL COMMENTS; Start at 14:45 Gabapentin (Neurontin) 300 mg TID PO Last administered on 11/29/17at 09:18; Start 11/28/17 at 18:00 A/P Assessment and Plan Osteoarthritis S/p left hip arthroplasty 11/28. - weightbearing, wound care and anticoagulation per orthopedic surgery. - pain control with a bowel regimen. - follow h/h. - incentive spirometry. - rehab efforts. HTN Blood pressure elevated s/t surgery. - pain control as needed. - allergic to most blood pressure meds. Asthma No complaints of dyspnea. - Proair and oxygen as needed. Neuropathy On gabapentin as an outpt. She still complains of nerve pain. - increase dose to 300 mg TID. PPx: Per ortho Discharge Planning Pending orthopedic clearance Mark Israel DO Nov 29, 2017 12:01
[2017-11-29 16:11] VITALS: BP 171/89; PULSE 83; RESP 18; TEMP 98; O2SAT 97
[2017-11-29 20:00] VITALS: BP 161/70; PULSE 78; RESP 16; TEMP 97.9; O2SAT 97
[2017-11-29] MEDS: DOCUSATE SODIUM 100 MG CAP PO SCH (20:15)
[2017-11-30] VITALS (8 sets, daily range): BP systolic 115–183; BP diastolic 53–81; PULSE 76–99; RESP 18; TEMP 97.4–99.9; O2SAT 93–96
[2017-11-30] MEDS: KETOROLAC TROMETHAMINE 30 MG/ML (IVP) VIAL IVP SCH ×2 (04:30→07:42)
--- NOTE | 2017-11-30 07:05 | PD.ORT.PN ---
Subjective Post Op Day #: 2 Subjective Remarks She is doing well. She still has some pain. She is concerned because she is unable to lift the leg. She and her daughters have decided that she will be going to a jail facility. Distance Walked 55 feet with PT. Objective Vitals Vital Signs Date Time Temp Pulse Resp B/P (MAP) Pulse Ox O2 Delivery O2 Flow Rate FiO2 11/30/17 04:00 98.8 82 18 178/79 (112) 95 11/30/17 00:00 97.4 76 18 168/74 (105) 94 11/29/17 20:00 97.9 78 16 161/70 (100) 97 11/29/17 16:11 98.0 83 18 171/89 (116) 97 11/29/17 11:56 98.3 71 17 149/65 (93) 95 11/29/17 08:17 98.0 72 18 156/68 (97) 96 I/O 11/29/17 11/29/17 11/29/17 11/30/17 11/30/17 11/30/17 07:00 15:00 23:00 07:00 15:00 23:00 Intake Total 360 ml 960 ml 460 ml Balance 360 ml 960 ml 460 ml Intake Oral 360 ml 960 ml 460 ml # Voids 2 3 3 # Bowel Movements 0 3 0 Result Diagram: 11/29/17 0614 Imaging Last 24 hours Impressions Hip X-Ray 11/28/17913 Signed Impressions: Service Date/Time: Tuesday, November 28, 2017 09:42 - CONCLUSION: Anatomic alignment. Mark Garcia MD Objective Remarks She is resting comfortably, supine in bed. The neurovascular status is intact. The dressing is dry and intact. Assessment & Plan Ortho Post Op Day #: 2 Problem List: (1) Primary osteoarthritis of left hip ICD Codes: M16.12 - Unilateral primary osteoarthritis, left hip Status: Resolved (2) Status post total replacement of left hip ICD Codes: Z96.642 - Presence of left artificial hip joint Plan: Continue postop care and PT. Assessment and Plan Condition: Good. Orthopedically stable. DVT prophylaxis: TEDs, aspirin, sequentials. Discharge plans: halfway facility ([facility]) for rehabilitation, probably tomorrow. An appointment was scheduled through the office. Prescriptions: Tramadol 50 mg. Ashlyn Melo MD ([facility]) Nov 30, 2017 07:05
[2017-11-30] MEDS: traMADol HCL 50 MG TAB PO PRN ×2 (07:16→12:53)
[2017-11-30] MEDS: ASPIRIN EC 81 MG TABEC PO SCH ×2 (07:16→16:40)
[2017-11-30] MEDS: MONTELUKAST SODIUM 10 MG TAB PO SCH (07:42)
[2017-11-30] MEDS: GABAPENTIN 100 MG CAP PO SCH ×3 (07:42→16:40)
[2017-11-30] MEDS: DOCUSATE SODIUM 100 MG CAP PO SCH ×2 (07:42→21:54)
[2017-11-30] MEDS: FLUTICASONE 100 MCG/VILANTEROL 25 MCG INHALER INH SCH (07:43)
[2017-11-30] MEDS: LACTATED RINGER'S 1000 ML INJ 1,000 ML IV SCH ×2 (08:55→21:54)
[2017-11-30 09:56] LABS: AUTOMATED NEUTROPHIL # 10.6 TH/MM3 (1.8-7.7); BASOPHIL # 0.1 TH/MM3 (0-0.2); BASOPHIL % 0.5 % (0.0-2.0); EOSINOPHIL # 0.1 TH/MM3 (0-0.4); EOSINOPHIL % 0.8 % (0.0-4.0); HEMATOCRIT 32.3 % (35.0-46.0); HEMOGLOBIN 10.9 GM/DL (11.6-15.3); LYMPH % 11.3 % (9.0-44.0); LYMPHOCYTE # 1.5 TH/MM3 (1.0-4.8); MEAN CELL VOLUME 91.1 FL (80.0-100.0); MEAN CORPUSCULAR HEMOGLOBIN 30.7 PG (27.0-34.0); MEAN CORPUSCULAR HGB CONC 33.6 % (32.0-36.0); MEAN PLATELET VOLUME 7.6 FL (7.0-11.0); MONO % 8.8 % (0.0-8.0); MONOCYTE # 1.2 TH/MM3 (0-0.9); NEUT % 78.6 % (16.0-70.0); PLATELET COUNT 329 TH/MM3 (150-450); RED BLOOD COUNT 3.55 MIL/MM3 (4.00-5.30); RED CELL DISTRIBUTION WIDTH 13.3 % (11.6-17.2); WHITE BLOOD COUNT 13.4 TH/MM3 (4.0-11.0)
[2017-11-30 10:11] LABS: ALBUMIN 2.9 GM/DL (3.4-5.0); AST (GOT) 22 U/L (15-37); BICARBONATE 27.2 MEQ/L (21.0-32.0); BLOOD UREA NITROGEN 13 MG/DL (7-18); CALCIUM 8.7 MG/DL (8.5-10.1); CHLORIDE 102 MEQ/L (98-107); GLOMERULAR FILTRATION RATE 82 ML/MIN (>89); GLUCOSE,RANDOM 87 MG/DL (74-106); MAGNESIUM 1.8 MG/DL (1.5-2.5); SODIUM (NA) 137 MEQ/L (136-145)
[2017-11-30 10:12] LABS: ALT (GPT) 15 U/L (10-53); PHOSPHORUS 2.7 MG/DL (2.5-4.9)
[2017-11-30 10:21] LABS: ALKALINE PHOSPHATASE 60 U/L (45-117); FREE T4 1.17 NG/DL (0.76-1.46); TOTAL BILIRUBIN ADULT 0.5 MG/DL (0.2-1.0); TOTAL PROTEIN 6.3 GM/DL (6.4-8.2)
--- NOTE | 2017-11-30 11:26 | HHI.PR ---
Subjective Remarks The patient is a 72-year-old female with past medical history of arthritis and hypertension who is presenting to the hospital for elective left hip arthroplasty. The patient says that about a year ago she came down with left hip pain. She says her pain got worse starting this past April. She says she has been doing a lot of hiking and climbing places such as [place] and the [place]. Her hip pain seemed to get worse secondary to that. She has been taking Advil for pain control. She got a Kenalog injection. She worked with physical therapy. She also has been experiencing nerve pain. She decided to get her hip repaired. She tolerated the surgery without any problem. She is not nauseous. Her pain is controlled. She had a bowel movement yesterday. She already worked with physical therapy. Discussed with family. 11-29 SEEN IN HER ROOM SOME PAIN IN LEFT HIP NO SOB, NO CHEST PAIN, NO PALPITATIONS DW RN AND CM AND PATIENT 11-30 SOME PAIN IN LEFT HIP WANTS TO GO TO REHAB NOW HOPEFULLY TO SNF TOMORROW NO NEW COMPLAINTS DW RN AND PT AND CM Objective Vitals Vital Signs Date Time Temp Pulse Resp B/P (MAP) Pulse Ox O2 Delivery O2 Flow Rate FiO2 11/30/17 08:55 18 11/30/17 08:22 18 11/30/17 07:52 99.0 82 18 170/76 (107) 93 11/30/17 04:00 98.8 82 18 178/79 (112) 95 11/30/17 00:00 97.4 76 18 168/74 (105) 94 11/29/17 20:00 97.9 78 16 161/70 (100) 97 11/29/17 16:11 98.0 83 18 171/89 (116) 97 11/29/17 11:56 98.3 71 17 149/65 (93) 95 I/O 11/29/17 11/29/17 11/29/17 11/30/17 11/30/17 11/30/17 07:00 15:00 23:00 07:00 15:00 23:00 Intake Total 360 ml 960 ml 460 ml Balance 360 ml 960 ml 460 ml Intake Oral 360 ml 960 ml 460 ml # Voids 2 3 3 # Bowel Movements 0 3 0 Result Diagram: 11/30/1784311/30/1744 Other Results Laboratory Tests Test 11/29/17 06:14 11/30/17 08:44 Hemoglobin 10.7 GM/DL 10.9 GM/DL Hematocrit 32.2 % 32.3 % White Blood Count 13.4 TH/MM3 Red Blood Count 3.55 MIL/MM3 Mean Corpuscular Volume 91.1 FL Mean Corpuscular Hemoglobin 30.7 PG Mean Corpuscular Hemoglobin Concent 33.6 % Red Cell Distribution Width 13.3 % Platelet Count 329 TH/MM3 Mean Platelet Volume 7.6 FL Neutrophils (%) (Auto) 78.6 % Lymphocytes (%) (Auto) 11.3 % Monocytes (%) (Auto) 8.8 % Eosinophils (%) (Auto) 0.8 % Basophils (%) (Auto) 0.5 % Neutrophils # (Auto) 10.6 TH/MM3 Lymphocytes # (Auto) 1.5 TH/MM3 Monocytes # (Auto) 1.2 TH/MM3 Eosinophils # (Auto) 0.1 TH/MM3 Basophils # (Auto) 0.1 TH/MM3 CBC Comment DIFF FINAL Differential Comment Blood Urea Nitrogen 13 MG/DL Creatinine 0.70 MG/DL Random Glucose 87 MG/DL Total Protein 6.3 GM/DL Albumin 2.9 GM/DL Calcium Level 8.7 MG/DL Phosphorus Level 2.7 MG/DL Magnesium Level 1.8 MG/DL Alkaline Phosphatase 60 U/L Aspartate Amino Transf (AST/SGOT) 22 U/L Alanine Aminotransferase (ALT/SGPT) 15 U/L Total Bilirubin 0.5 MG/DL Sodium Level 137 MEQ/L Potassium Level 3.8 MEQ/L Chloride Level 102 MEQ/L Carbon Dioxide Level 27.2 MEQ/L Anion Gap 8 MEQ/L Estimat Glomerular Filtration Rate 82 ML/MIN Free Thyroxine 1.17 NG/DL Thyroid Stimulating Hormone 3rd Gen 1.550 uIU/ML Imaging Last Impressions Hip X-Ray 11/28/17 0914 Signed Impressions: Service Date/Time: Tuesday, November 28, 2017 09:42 - CONCLUSION: Anatomic alignment. Mark Garcia MD Objective Remarks GENERAL: Awake alert and oriented 3 talkative and cooperative SKIN: Warm and dry. Some facial flushing HAS IMPROVED HEAD: Atraumatic. Normocephalic. EYES: Pupils equal and round. No scleral icterus. No injection or drainage. Extraocular muscles intact ENT: No nasal bleeding or discharge. Mucous membranes pink and moist. Tongue is midline NECK: Trachea midline. No JVD. Supple CARDIOVASCULAR: Regular rate and rhythm. S1-S2 no S3-S4 RESPIRATORY: No accessory muscle use. Clear to auscultation. Breath sounds equal bilaterally. GASTROINTESTINAL: Abdomen soft, non-tender, nondistended. Hepatic and splenic margins not palpable. MUSCULOSKELETAL: Extremities without clubbing, cyanosis, or edema. No obvious deformities. NEUROLOGICAL: Awake and alert. No obvious cranial nerve deficits. Motor grossly within normal limits. Five out of 5 muscle strength in the arms and legs. Normal speech. PSYCHIATRIC: Appropriate mood and affect; insight and judgment normal. Procedures Date of Surgery: Nov 28, 2017 Preoperative Diagnosis: (1) Primary osteoarthritis of left hip Postoperative Diagnosis: (1) Primary osteoarthritis of left hip Procedure: Left total hip arthroplasty using [place]rika prosthesis. Anesthesia: Spinal with supplemental local with bupivacaine liposomal Surgeon: Colton Melo MD [place] Manager(s): ORACIO Lozano Operation and Findings: Indications and Findings: This 72-year-old woman has a 2-1/2 year history of progressively worsening pain in her left hip to the point that she has an ambulation tolerance of one half block. She has groin pain and lateral pain. She has difficulty with activities of daily living, especially standing from a seated position and vice versa as well as stair climbing. She uses a cart when she walks. She has not responded to conservative measures including anti- inflammatory agents intra-articular corticosteroids exercises ambulatory aids. Physical findings showed limited range of motion in the hip with tenderness on motion. She has an antalgic gait. X-rays show loss of articular cartilage and [id number] with osteophytes and irregularity in the femoral head. Operative findings showed that there was significant degenerative change with loss of articular cartilage with [id number], osteophytes and eburnation. The prosthesis used was a [place] prosthesis with the acetabulum being a Tritanium cluster shell size 48 mm outer diameter with an X3 polyethylene 0 liner with a 32 mm inner diameter. The femoral component was an Accolade 2 femoral stem with a 132 neck angle, size 2. The femoral head was a Biolox delta 32 mm outer diameter with a -4 mm neck length. The patient was brought to the clean air operating suite and a spinal anesthetic was administered. The patient was then positioned into a lateral position with the left hip up on a Biomet lateral positioner. The hip and lower extremity were then prepped with alcohol, Hibiclens and ChloraPrep and draped in the usual manner with the hip draped free. Patient received prophylactic antibiotics preoperatively. The patient also received tranexamic acid preoperatively. An appropriate timeout procedure was carried out. An incision was then made from the midportion of the greater trochanter proximally and posteriorly paralleling the fibers of the gluteus araceli. The incision was deepened through subcutaneous tissues down to the fascia alejandro and gluteus fascia. The gluteus fascia was then split longitudinally in line with its fibers up to the upper portion of the fascia alejandro. With wound towels in place, the Charnley retractor was inserted. The sciatic nerve was identified and protected throughout the procedure. Dissection was then carried down to the interval between the gluteus minimus and the piriformis. A retractor was inserted. The piriformis and obturator conjoined tendon was released from the greater trochanter and reflected off the capsule. A capsulotomy was made longitudinally along the femoral neck to the base of the femoral neck and then curved distally along the posterior aspect of the greater trochanter. The hip was then internally rotated. Further release of the external rotators was carried out exposing the hip. The hip was then dislocated. The femoral neck was transected at the appropriate level using the oscillating saw placement of appropriate retractors. The femoral head was then removed. Preparation of the femur was initiated with a box osteotome followed by a curet to identify the medullary canal. Broaching was then initiated with the size 0 broach and went and 1 size increments up to size 2. The broach handle was removed. The femoral neck was then trimmed with a calcar planar. Attention was then directed to the acetabulum. Soft tissues were debrided from the acetabulum. Retractors were placed about the acetabulum. Reaming was then initiated with the 41 millimeter reamer and went in 2 mm increments up to the 45 millimeter diameter reamer after which reaming went in 1 mm increments to size 47 mm. A trial reduction with the 48 millimeter trial prosthesis was carried out. When this was deemed to be appropriate, the trial prosthesis was removed. The acetabulum was then irrigated and cleaned. The actual prosthesis as noted above was then impacted into place and seated appropriately. Drill holes were then made and sounded. Appropriate sized screws were then inserted to stabilize the acetabulum further. The liner as noted above was then inserted into the acetabular shell and impacted into place. Osteophytes were trimmed from the acetabulum. Local anesthetic was then administered throughout the area of the acetabulum and anterior aspect of the femur. The trial neck was then placed on the broach for the above-noted prosthesis. The femoral head trial was placed onto the femoral neck with the external diameter of the head being 32 millimeters and the neck length being -4 millimeters. A trial reduction was then carried out. The stability, leg length and motion were excellent. There was no pistoning. The trial prosthesis was removed. The broach was removed. The femoral component was then impacted into the medullary canal of the femur after irrigation and suctioning. When this was appropriately seated a trial reduction was again carried out with the trial prosthesis. Again, there was no pistoning. The leg length was appropriate. The stability and motion were excellent. The trial prosthesis was then removed. After cleaning and drying the trunion of the femoral component, the above-noted femoral head was impacted onto the trunnion. The hip was then reduced. The stability and mobility were again checked along with leg lengths as noted above. The hip was then positioned appropriately and closure commenced after the remainder of the local anesthetic was injected throughout the hip. The external rotators and capsule were then repaired with #1 Vicryl interrupted transosseous sutures with a Krakw technique to reattach the external rotators and capsule to the posterior aspect of the greater trochanter. The capsule itself on the superior aspect was closed with #1 Vicryl interrupted [id number] sutures. The sciatic nerve was again inspected. The fascia alejandro and gluteus fascia were then repaired with #1 Vicryl interrupted [id number] sutures. The subcutaneous tissues were closed with 2-0 Vicryl interrupted simple sutures with buried knots. The skin was closed with a continuous subcuticular closure of 4-0 Monocryl. The wound was then approximated with Dermabond Prineo. A dry dressing was applied to the hip. A knee immobilizer was applied to the leg. The patient was then transferred from the operating room to the recovery room in satisfactory condition having tolerated the procedure well. Counts are correct. Specimens: None. Estimated blood loss: 200 mL Ashlyn Melo MD ([facility]) Medications and IVs Current Medications Lactated Ringer's 1,000 ml @ 30 mls/hr Q24H PRN IV SEE LABEL COMMENTS Last administered on 11/28/17at 06:00; Start 11/28/17 at 06:00; Stop 11/28/17 at 10:41 ; Status DC Sodium Chloride 500 ml @ 30 mls/hr [id number] PRN IV SEE LABEL COMMENTS; Start at 06:00; Stop 11/28/17 at 10:41; Status DC Metoprolol Tartrate (Lopressor) 25 mg ORTHODONTIC LABORATORY TECHNICIAN PRN PO SEE LABEL COMMENTS; Start 11/28/17 at 06:00; Stop 12/01/17 at 05:59 Povidone Iodine (Betadine 5% Antisepsis Kit) 1 applic ORTHODONTIC LABORATORY TECHNICIAN PRN EACH NARE SEE LABEL COMMENTS Last administered on 11/28/17at 06:31; Start 11/28/17 at 06:00 ; Stop 12/01/17 at 05:59 Chlorhexidine Gluconate (Chlorhexidine 2% Cloth) 3 pack ORTHODONTIC LABORATORY TECHNICIAN PRN TOPICAL SEE LABEL COMMENTS; Start 11/28/17 at 06:00; Stop 12/01/17 at 05:59 Acetaminophen 100 ml @ As Directed STK-MED ONCE IV ; Start 11/28/17 at 05:58; Stop 11/28/17 at 05:59; Status DC Propofol 50 ml @ As Directed STK-MED ONCE .ROUTE ; Start 11/28/17 at 05:58; Stop 11/28/17 at 05:59; Status DC Chlorhexidine Gluconate (Hibiclens 4% Top Soln) 1 applic ONCE TOPICAL ; Start at 06:15; Stop 12/01/17 at 06:14 Cefazolin Sodium/ Dextrose 50 ml @ 100 mls/hr ORTHODONTIC LABORATORY TECHNICIAN IV Last administered on 11/28/17at 07:10; Start 11/28/17 at 06:15; Stop 12/01/17 at 06:14 Tranexamic Acid 705 mg/Sodium Chloride 107.05 ml @ 200 mls/ hr ONCE IV Last administered on 11/28/17at 06:58; Start 11/28/17 at 06:15; Stop 11/28/17 at 14:00 ; Status DC Tranexamic Acid 705 mg/Sodium Chloride 107.05 ml @ 200 mls/ hr ONCE IV Last administered on 11/28/17at 11:09; Start 11/28/17 at 06:15; Stop 11/28/17 at 15:00 ; Status DC Bupivacaine Liposome 20 ml/ Sodium Chloride 60 ml @ 120 mls/hr ONCE P-ARTICULR Last administered on 11/28/17at 07:29; Start 11/28/17 at 06:15; Stop 11/28/17 at 14:00; Status DC Gentamicin Sulfate (Gentamicin Inj) 240 mg STK-MED ONCE .ROUTE Last administered on 11/28/17at 07:29; Start 11/28/17 at 05:59; Stop 11/28/17 at 06:00 ; Status DC Bupivacaine HCl/ Dextrose (Marcaine Spinal Inj) 2 ml STK-MED ONCE .ROUTE ; Start 11/28/17 at 06:22; Stop 11/28/17 at 06:23; Status DC Albuterol Sulfate (Proair Hfa Inh) 2 puff Q4HR NEB PRN INH SHORTNESS OF BREATH ; Start 11/28/17 at 06:45 Fluticasone/ Vilanterol (Breo Ellipta 100-25 Inh) 1 puff DAILY INH ; Start 11/28 at 09:00 Gabapentin (Neurontin) 200 mg BID PO ; Start 11/28/17 at 09:00; Stop 11/28/17 at 16:46; Status DC Montelukast Sodium (Singulair) 10 mg DAILY PO Last administered on 11/30/17at 07 :42; Start 11/28/17 at 09:00 Non-Formulary Medication 4 mg Q4H PRN PO Allergies; Start 11/28/17 at 06:45; Stop 11/28/17 at 08:51; Status DC Non-Formulary Medication 1 cap DAILY PO ; Start 11/28/17 at 09:00; Stop at 09:00; Status DC Patient Own Medication PT OWN MED: LIVALO (PITAVASTAT... HS PO ; Start 11/28/17 at 21:00; Status Future Hold Lactated Ringer's 1,000 ml @ 80 mls/hr [id number] IV Last administered on at 10:00; Start 11/28/17 at 09:14 Cefazolin Sodium 1000 mg/Sodium Chloride 100 ml @ 200 mls/hr Q6H IV Last administered on 11/29/17at 00:59; Start 11/28/17 at 13:00; Stop 11/29/17 at 01:29 ; Status DC Miscellaneous Information (Post-op Orders (for Pharmacy)) STAT ONCE XX ; Start 11/28/17 at 09:15; Stop 11/28/17 at 12:07; Status DC Hydromorphone HCl (Dilaudid Pf Inj) 0.5 mg Q3H PRN IV PUSH BREAKTHROUGH PAIN; Start 11/28/17 at 09:15 Tramadol HCl (Ultram) 50 mg Q4H PRN PO PAIN LESS THAN 5 ON SCALE Last administered on 11/30/17at 07:16; Start 11/28/17 at 09:15 Ketorolac Tromethamine (Toradol Inj) 15 mg Q6H IVP Last administered on at 07:42; Start 11/28/17 at 16:30; Stop 11/30/17 at 10:52; Status DC Tranexamic Acid / Sodium Chloride 100 ml @ 200 mls/hr UNSCH IV ; Start at 09:15; Stop 11/28/17 at 10:53; Status DC Ondansetron HCl (Zofran Inj) 4 mg Q6H PRN IVP NAUSEA OR VOMITING; Start at 09:15 Docusate Sodium (Colace) 100 mg BID PO Last administered on 11/30/17at 07:42; Start 11/29/17 at 21:00 Zolpidem Tartrate (Ambien) 5 mg HS PRN PO SLEEP; Start 11/28/17 at 09:15 Bisacodyl (Dulcolax Supp) 10 mg DAILY PRN RECTAL CONSTIPATION; Start 11/28/17 at 09:15 Magnesium Hydroxide (Milk Of Magnesia Liq) 30 ml DAILY PRN PO CONSTIPATION; Start 11/28/17 at 12:30 Aspirin (Ecotrin Ec) 81 mg BIDAC PO Last administered on 11/30/17at 07:16; Start 11/29/17 at 08:30 Hydromorphone HCl (Dilaudid) 1 mg Q4H PRN PO PAIN GREATER THAN 5 Last administered on 11/28/17at 14:55; Start 11/28/17 at 09:15 Midazolam HCl (Versed Inj) 2 mg STK-MED ONCE .ROUTE ; Start 11/28/17 at 09:37; Stop 11/28/17 at 09:38; Status DC Miscellaneous Information ALL NURSING DEPARTME... UNSCH PRN .XX SEE LABEL COMMENTS; Start 11/28/17 at 09:26; Stop 11/29/17 at 09:25; Status DC Hydromorphone HCl (Dilaudid Pf Inj) 0.5 mg STK-MED ONCE .ROUTE Last administered on 11/28/17at 09:48; Start 11/28/17 at 09:48; Stop 11/28/17 at 09:49 ; Status DC Hydromorphone HCl (Dilaudid Pf Inj) 0.5 mg STK-MED ONCE .ROUTE Last administered on 11/28/17at 11:41; Start 11/28/17 at 11:41; Stop 11/28/17 at 11:42 ; Status DC Miscellaneous (Pill Splitter) 1 ea UNSCH PRN OTHER SEE LABEL COMMENTS; Start at 14:45 Gabapentin (Neurontin) 300 mg TID PO Last administered on 11/30/17at 07:42; Start 11/28/17 at 18:00 A/P Assessment and Plan Osteoarthritis S/p left hip arthroplasty 11/28. - weightbearing, wound care and anticoagulation per orthopedic surgery. - pain control with a bowel regimen. - follow h/h. - incentive spirometry. - rehab efforts. HTN Blood pressure elevated s/t surgery. - pain control as needed. - allergic to most blood pressure meds. Asthma No complaints of dyspnea. - Proair and oxygen as needed. Neuropathy On gabapentin as an outpt. She still complains of nerve pain. - increase dose to 300 mg TID. LEUKOCYTOSIS AM LABS PPx: Per ortho Discharge Planning Pending orthopedic clearance Mark Israel DO Nov 30, 2017 11:26
[2017-11-30] MEDS ORDERED: cloNIDine HCL 0.1 MG TAB PO PRN (16:30)
[2017-11-30 17:21] LABS: HEMOGLOBIN A1C 5.1 % (4.3-6.0)
[2017-12-01] VITALS: BP 153/67; PULSE 81; RESP 18; TEMP 99.8; O2SAT 94
[2017-12-01 04:00] VITALS: BP 155/57; PULSE 80; RESP 18; TEMP 99.5; O2SAT 94
[2017-12-01] MEDS: traMADol HCL 50 MG TAB PO PRN ×2 (05:31→10:07)
[2017-12-01] MEDS: ASPIRIN EC 81 MG TABEC PO SCH (06:07)
--- NOTE | 2017-12-01 06:15 | PD.ORT.PN ---
Subjective Post Op Day #: 3 Subjective Remarks She is doing well. She still has some pain. She is able to get out of the chair but has difficulty getting out of the bed. She and her daughters have decided that she will be going to a fdc facility. Distance Walked 65 feet with PT. Objective Vitals Vital Signs Date Time Temp Pulse Resp B/P (MAP) Pulse Ox O2 Delivery O2 Flow Rate FiO2 12/01/17 04:00 99.5 80 18 155/57 (89) 94 12/01/17 00:00 99.8 81 18 153/67 (95) 94 11/30/17 20:00 98.7 81 18 130/63 (85) 94 11/30/17 18:16 88 129/60 (83) 94 11/30/17 17:40 99 115/53 (73) 96 11/30/17 16:00 99.9 88 18 183/81 (115) 94 11/30/17 12:00 99.0 88 18 174/73 (106) 96 11/30/17 08:55 18 11/30/17 08:22 18 11/30/17 07:52 99.0 82 18 170/76 (107) 93 I/O 11/30/17 11/30/17 11/30/17 12/01/17 12/01/17 12/01/17 07:00 15:00 23:00 07:00 15:00 23:00 Intake Total 460 ml 960 ml Balance 460 ml 960 ml Intake Oral 460 ml 960 ml # Voids 3 4 # Bowel Movements 0 1 Result Diagram: 11/30/17 0844 11/30/17 0844 Imaging Last 24 hours Impressions Hip X-Ray 11/28/17 0914 Signed Impressions: Service Date/Time: Tuesday, November 28, 2017 09:42 - CONCLUSION: Anatomic alignment. Mark Garcia MD Objective Remarks She is resting comfortably, supine in bed. The neurovascular status is intact. The dressing is dry and intact. Assessment & Plan Ortho Post Op Day #: 3 Problem List: (1) Primary osteoarthritis of left hip ICD Codes: M16.12 - Unilateral primary osteoarthritis, left hip Status: Resolved (2) Status post total replacement of left hip ICD Codes: Z96.642 - Presence of left artificial hip joint Plan: Continue postop care and PT. Assessment and Plan She is encouraged to continue using her incentive spirometer. Condition: Good. Orthopedically stable. DVT prophylaxis: TEDs, aspirin, sequentials. Discharge plans: half-way facility ([facility]) for rehabilitation, probably tomorrow. An appointment was scheduled through the office. Prescriptions: Tramadol 50 mg. Ashlyn Melo MD (Charles) Dec 01, 2017 06:15
--- NOTE | 2017-12-01 06:28 | HHI.DS ---
Discharge Summary Admission Date Nov 28, 2017 at 05:30 Discharge Date: Dec 01, 2017 Admitting Diagnosis Primary osteoarthritis, left hip. Diagnosis: (1) Primary osteoarthritis of left hip Diagnosis: Principal ICD Codes: M16.12 - Unilateral primary osteoarthritis, left hip Status: Resolved (2) Status post total replacement of left hip Diagnosis: Principal ICD Codes: Z96.642 - Presence of left artificial hip joint Procedures Left total hip arthroplasty with [place] prosthesis on 11/28/2017 Brief History This is a 72 year old female patient has had long-standing left hip arthritis which has been nonresponsive to conservative measures. These are enumerated in the history and physical examination. She was admitted for an elective total hip arthroplasty. Physical findings showed limited range of motion with an antalgic gait. Radiographic findings she has severe osteoarthritis in the hip with loss of articular cartilage to bone on bone and osteophytes. CBC/BMP: 11/30/17 0844 11/30/17 0844 Significant Findings Laboratory Tests Test 11/29/17 06:14 11/30/17 08:44 12/01/17 05:37 Hemoglobin 10.7 GM/DL (11.6-15.3) 10.9 GM/DL (11.6-15.3) Hematocrit 32.2 % (35.0-46.0) 32.3 % (35.0-46.0) White Blood Count 13.4 TH/MM3 (4.0-11.0) Red Blood Count 3.55 MIL/MM3 (4.00-5.30) Neutrophils (%) (Auto) 78.6 % (16.0-70.0) Monocytes (%) (Auto) 8.8 % (0.0-8.0) Neutrophils # (Auto) 10.6 TH/MM3 (1.8-7.7) Monocytes # (Auto) 1.2 TH/MM3 (0-0.9) Total Protein 6.3 GM/DL (6.4-8.2) Albumin 2.9 GM/DL (3.4-5.0) Estimat Glomerular Filtration Rate 82 ML/MIN (>89) Imaging Last 72 hours Impressions Hip X-Ray 11/28/17 0914 Signed Impressions: Service Date/Time: Tuesday, November 28, 2017 09:42 - CONCLUSION: Anatomic alignment. Mark Garcia MD PE at Discharge She is resting comfortably, supine in bed. The neurovascular status is intact. The dressing is dry and intact. Transfer Summary She is being transferred to a retirement facility for rehabilitation. She is to have physical therapy twice daily. She is to ambulate with weightbearing to tolerance. She is to use a knee immobilizer while in bed sleeping for at least 6 weeks. She needs occupational therapy for activities of daily living. Posterior hip precautions are to be instructed and observed. Hospital Course The patient was admitted as noted above. The above noted operative procedure was carried out that day. Preoperatively prophylactic antibiotics were administered Ancef according to protocol. These were continued postoperatively. The patient also received tranexamic acid to help with hemostasis according to protocol. In the postanesthesia care unit mechanical methods of DVT prophylaxis in the form of DANIEL stockings and sequentials were initiated. Physical therapy was initiated on the day of surgery. On postoperative day #1 physical therapy continued. DVT prophylaxis with aspirin 81 mg was initiated at this time. The patient continued physical therapy throughout the hospitalization. The distance walked and range of motion improved throughout the hospitalization. The patient was discharged on postoperative day 3 with the disposition being to a retirement facility ([facility]) for rehabilitation. An appointment for follow-up was made prior to admission. Pt Condition on Discharge: Good Discharge Disposition: Disch w/ Home Health Serv Discharge Instructions Diet Instructions: As Tolerated, No Restrictions Activities You Can Perform: Full Weight Bearing, Shower Only-No Bath Activities to Avoid: Lifting/Bending, Strenuous Activity, Bathing, Driving Follow up Referrals: Orthopedics with Ashlyn Melo MD (Charles) New Medications: Tramadol (Ultram) 50 Mg Tab 50 MG PO Q4H PRN for PAIN SCALE 1 TO 10, #30 TAB Continued Medications: Albuterol 6.7 GM Inh (Proventil Hfa 6.7 GM Inh) 90 Mcg/Act Aer 2 PUFF INH Q4-6H PRN for SHORTNESS OF BREATH, #1 INHALER 0 Refills Calcium Carbonate-Cholecalciferol (Calcium 600 with Vitamin D) 600-400 mg-Unit Tab 1 TAB PO DAILY for Calcium Supplement, TAB 0 Refills Chlorpheniramine (Chlor-Trimeton) 4 Mg Tab 4 MG PO Q4H PRN for Allergies, TAB 0 Refills Fish Oil-Cholecalciferol (Fish Oil + D3) 1,200-1,000 Mg-Unit Cap 1 CAP PO DAILY for Nutritional Supplement, #30 CAP 0 Refills Fluticasone-Vilanterol Inh (Breo Ellipta Inh) 100-25 Mcg/Act Inh 1 PUFF INH DAILY, #1 INHALER 0 Refills Use daily at the same time. Gabapentin (Neurontin) 100 Mg Cap 200 MG PO BID, #60 CAP 0 Refills Montelukast (Singulair) 10 Mg Tab 10 MG PO DAILY, #30 TAB 0 Refills Pitavastatin (Livalo) 4 Mg Tab 4 MG PO HS for Cholesterol Management, #30 TAB 0 Refills Tramadol (Tramadol) 50 Mg Tab 50 MG PO Q8H PRN for PAIN, TAB 0 Refills Ashlyn Melo MD (Charles) Dec 01, 2017 06:28
[2017-12-01] MEDS ORDERED: TRAM50 PO (06:29)
[2017-12-01 06:43] LABS: AUTOMATED NEUTROPHIL # 10.8 TH/MM3 (1.8-7.7); BASOPHIL # 0.1 TH/MM3 (0-0.2); BASOPHIL % 0.4 % (0.0-2.0); EOSINOPHIL # 0.3 TH/MM3 (0-0.4); HEMATOCRIT 31.8 % (35.0-46.0); HEMOGLOBIN 10.5 GM/DL (11.6-15.3); LYMPH % 16.2 % (9.0-44.0); LYMPHOCYTE # 2.4 TH/MM3 (1.0-4.8); MEAN CELL VOLUME 90.9 FL (80.0-100.0); MEAN CORPUSCULAR HEMOGLOBIN 30.1 PG (27.0-34.0); MEAN CORPUSCULAR HGB CONC 33.2 % (32.0-36.0); MEAN PLATELET VOLUME 7.3 FL (7.0-11.0); MONOCYTE # 1.2 TH/MM3 (0-0.9); NEUT % 73.4 % (16.0-70.0); PLATELET COUNT 329 TH/MM3 (150-450); RED CELL DISTRIBUTION WIDTH 13.1 % (11.6-17.2); WHITE BLOOD COUNT 14.7 TH/MM3 (4.0-11.0)
[2017-12-01 07:13] LABS: ALBUMIN 2.8 GM/DL (3.4-5.0); ALT (GPT) 14 U/L (10-53); AST (GOT) 21 U/L (15-37); BICARBONATE 28.8 MEQ/L (21.0-32.0); BLOOD UREA NITROGEN 10 MG/DL (7-18); CALCIUM 8.8 MG/DL (8.5-10.1); CHLORIDE 102 MEQ/L (98-107); CREATININE 0.62 MG/DL (0.50-1.00); GLOMERULAR FILTRATION RATE 94 ML/MIN (>89); GLUCOSE,RANDOM 96 MG/DL (74-106); MAGNESIUM 1.9 MG/DL (1.5-2.5); PHOSPHORUS 3.2 MG/DL (2.5-4.9); SODIUM (NA) 137 MEQ/L (136-145)
[2017-12-01 07:16] LABS: ALKALINE PHOSPHATASE 61 U/L (45-117); TOTAL BILIRUBIN ADULT 0.7 MG/DL (0.2-1.0); TOTAL PROTEIN 6.2 GM/DL (6.4-8.2)
[2017-12-01 08:00] VITALS: BP 132/59; PULSE 88; RESP 18; TEMP 98.1; O2SAT 92
[2017-12-01] MEDS: DOCUSATE SODIUM 100 MG CAP PO SCH (08:48)
[2017-12-01] MEDS: FLUTICASONE 100 MCG/VILANTEROL 25 MCG INHALER INH SCH (08:48)
[2017-12-01] MEDS: LACTATED RINGER'S 1000 ML INJ 1,000 ML IV SCH (08:48)
[2017-12-01] MEDS: GABAPENTIN 100 MG CAP PO SCH ×2 (08:48→12:16)
[2017-12-01] MEDS: MONTELUKAST SODIUM 10 MG TAB PO SCH (08:48)
--- NOTE | 2017-12-01 11:29 | HHI.PR ---
Subjective Remarks Follow up left hip. Patient sitting in chair, denies pain. no acute events overnight. Objective Vitals Vital Signs Date Time Temp Pulse Resp B/P (MAP) Pulse Ox O2 Delivery O2 Flow Rate FiO2 12/01/17 08:00 98.1 88 18 132/59 (83) 92 12/01/17 04:00 99.5 80 18 155/57 (89) 94 12/01/17 00:00 99.8 81 18 153/67 (95) 94 11/30/17 20:00 98.7 81 18 130/63 (85) 94 11/30/17 18:16 88 129/60 (83) 94 11/30/17 17:40 99 115/53 (73) 96 11/30/17 16:00 99.9 88 18 183/81 (115) 94 11/30/17 12:00 99.0 88 18 174/73 (106) 96 I/O 11/30/17 11/30/17 11/30/17 12/01/17 12/01/17 12/01/17 07:00 15:00 23:00 07:00 15:00 23:00 Intake Total 460 ml 960 ml 240 ml Balance 460 ml 960 ml 240 ml Intake Oral 460 ml 960 ml 240 ml # Voids 3 4 4 # Bowel Movements 0 1 0 Result Diagram: 12/01/17 0537 12/01/17 0537 Imaging Last Impressions Hip X-Ray 11/28/1714 Signed Impressions: Service Date/Time: Tuesday, November 28, 2017 09:42 - CONCLUSION: Anatomic alignment. Mark Garcia MD Objective Remarks GENERAL: SKIN: Warm and dry. HEAD: Atraumatic. Normocephalic. EYES: Pupils equal and round. No scleral icterus. No injection or drainage. ENT: No nasal bleeding or discharge. Mucous membranes pink and moist. NECK: Trachea midline. No JVD. CARDIOVASCULAR: Regular rate and rhythm. RESPIRATORY: No accessory muscle use. Clear to auscultation. Breath sounds equal bilaterally. GASTROINTESTINAL: Abdomen soft, non-tender, nondistended. Hepatic and splenic margins not palpable. MUSCULOSKELETAL: Extremities without clubbing, cyanosis, or edema. No obvious deformities. NEUROLOGICAL: Awake and alert. No obvious cranial nerve deficits. Motor grossly within normal limits. Five out of 5 muscle strength in the arms and legs. Normal speech. PSYCHIATRIC: Appropriate mood and affect; insight and judgment normal. Procedures Date of Surgery: Nov 28, 2017 Preoperative Diagnosis: (1) Primary osteoarthritis of left hip Postoperative Diagnosis: (1) Primary osteoarthritis of left hip Procedure: Left total hip arthroplasty using [place] prosthesis. Anesthesia: Spinal with supplemental local with bupivacaine liposomal Surgeon: Colton Melo MD Duck Operator(s): ORACIO Lozano Operation and Findings: Indications and Findings: This 72-year-old woman has a 2-1/2 year history of progressively worsening pain in her left hip to the point that she has an ambulation tolerance of one half block. She has groin pain and lateral pain. She has difficulty with activities of daily living, especially standing from a seated position and vice versa as well as stair climbing. She uses a cart when she walks. She has not responded to conservative measures including anti- inflammatory agents intra-articular corticosteroids exercises ambulatory aids. Physical findings showed limited range of motion in the hip with tenderness on motion. She has an antalgic gait. X-rays show loss of articular cartilage and [id number] with osteophytes and irregularity in the femoral head. Operative findings showed that there was significant degenerative change with loss of articular cartilage with [id number], osteophytes and eburnation. The prosthesis used was a Erika prosthesis with the acetabulum being a Tritanium cluster shell size 48 mm outer diameter with an X3 polyethylene 0 liner with a 32 mm inner diameter. The femoral component was an Accolade 2 femoral stem with a 132 neck angle, size 2. The femoral head was a Biolox delta 32 mm outer diameter with a -4 mm neck length. The patient was brought to the clean air operating suite and a spinal anesthetic was administered. The patient was then positioned into a lateral position with the left hip up on a [employer] lateral positioner. The hip and lower extremity were then prepped with alcohol, Hibiclens and ChloraPrep and draped in the usual manner with the hip draped free. Patient received prophylactic antibiotics preoperatively. The patient also received tranexamic acid preoperatively. An appropriate timeout procedure was carried out. An incision was then made from the midportion of the greater trochanter proximally and posteriorly paralleling the fibers of the gluteus araceli. The incision was deepened through subcutaneous tissues down to the fascia alejandro and gluteus fascia. The gluteus fascia was then split longitudinally in line with its fibers up to the upper portion of the fascia alejandro. With wound towels in place, the Charnley retractor was inserted. The sciatic nerve was identified and protected throughout the procedure. Dissection was then carried down to the interval between the gluteus minimus and the piriformis. A retractor was inserted. The piriformis and obturator conjoined tendon was released from the greater trochanter and reflected off the capsule. A capsulotomy was made longitudinally along the femoral neck to the base of the femoral neck and then curved distally along the posterior aspect of the greater trochanter. The hip was then internally rotated. Further release of the external rotators was carried out exposing the hip. The hip was then dislocated. The femoral neck was transected at the appropriate level using the oscillating saw placement of appropriate retractors. The femoral head was then removed. Preparation of the femur was initiated with a box osteotome followed by a curet to identify the medullary canal. Broaching was then initiated with the size 0 broach and went and 1 size increments up to size 2. The broach handle was removed. The femoral neck was then trimmed with a calcar planar. Attention was then directed to the acetabulum. Soft tissues were debrided from the acetabulum. Retractors were placed about the acetabulum. Reaming was then initiated with the 41 millimeter reamer and went in 2 mm increments up to the 45 millimeter diameter reamer after which reaming went in 1 mm increments to size 47 mm. A trial reduction with the 48 millimeter trial prosthesis was carried out. When this was deemed to be appropriate, the trial prosthesis was removed. The acetabulum was then irrigated and cleaned. The actual prosthesis as noted above was then impacted into place and seated appropriately. Drill holes were then made and sounded. Appropriate sized screws were then inserted to stabilize the acetabulum further. The liner as noted above was then inserted into the acetabular shell and impacted into place. Osteophytes were trimmed from the acetabulum. Local anesthetic was then administered throughout the area of the acetabulum and anterior aspect of the femur. The trial neck was then placed on the broach for the above-noted prosthesis. The femoral head trial was placed onto the femoral neck with the external diameter of the head being 32 millimeters and the neck length being -4 millimeters. A trial reduction was then carried out. The stability, leg length and motion were excellent. There was no pistoning. The trial prosthesis was removed. The broach was removed. The femoral component was then impacted into the medullary canal of the femur after irrigation and suctioning. When this was appropriately seated a trial reduction was again carried out with the trial prosthesis. Again, there was no pistoning. The leg length was appropriate. The stability and motion were excellent. The trial prosthesis was then removed. After cleaning and drying the trunion of the femoral component, the above-noted femoral head was impacted onto the trunnion. The hip was then reduced. The stability and mobility were again checked along with leg lengths as noted above. The hip was then positioned appropriately and closure commenced after the remainder of the local anesthetic was injected throughout the hip. The external rotators and capsule were then repaired with #1 Vicryl interrupted transosseous sutures with a Krakw technique to reattach the external rotators and capsule to the posterior aspect of the greater trochanter. The capsule itself on the superior aspect was closed with #1 Vicryl interrupted [id number] sutures. The sciatic nerve was again inspected. The fascia alejandro and gluteus fascia were then repaired with #1 Vicryl interrupted [id number] sutures. The subcutaneous tissues were closed with 2-0 Vicryl interrupted simple sutures with buried knots. The skin was closed with a continuous subcuticular closure of 4-0 Monocryl. The wound was then approximated with Dermabond Prineo. A dry dressing was applied to the hip. A knee immobilizer was applied to the leg. The patient was then transferred from the operating room to the recovery room in satisfactory condition having tolerated the procedure well. Counts are correct. Specimens: None. Estimated blood loss: 200 mL Ashlyn Melo MD (Charles) Medications and IVs Current Medications Medications (Trade) Dose Ordered Sig/Pepito Route Start Time Stop Time Status Last Admin (Proair Hfa Inh) 2 puff Q4HR NEB PRN INH 11/28/17 06:45 (Breo Ellipta 100-25 Inh) 1 puff DAILY INH 11/28/17 09:00 (Singulair) 10 mg DAILY PO 11/28/17 09:00 12/01/17 08:48 Patient Own Medication PT OWN MED: LIVALO (PITAVASTAT... HS PO 11/28/17 21:00 Future Hold Lactated Ringer's 1,000 ml @ 80 mls/hr [id number] IV 11/28/17 09:14 11/28/17 10:00 (Dilaudid Pf Inj) 0.5 mg Q3H PRN IV PUSH 11/28/17 09:15 (Ultram) 50 mg Q4H PRN PO 11/28/17 09:15 12/01/17 10:07 (Zofran Inj) 4 mg Q6H PRN IVP 11/28/17 09:15 (Colace) 100 mg BID PO 11/29/17 21:00 12/01/17 08:48 (Ambien) 5 mg HS PRN PO 11/28/17 09:15 (Dulcolax Supp) 10 mg DAILY PRN RECTAL 11/28/17 09:15 (Milk Of Magnesia Liq) 30 ml DAILY PRN PO 11/28/17 12:30 (Ecotrin Ec) 81 mg BIDAC PO 11/29/17 08:30 12/01/17 06:07 (Dilaudid) 1 mg Q4H PRN PO 11/28/17 09:15 11/28/17 14:55 (Pill Splitter) 1 ea UNSCH PRN OTHER 11/28/17 14:45 (Neurontin) 300 mg TID PO 11/28/17 18:00 12/01/17 12:16 (Catapres) 0.1 mg Q4H PRN PO 11/30/17 16:30 11/30/17 16:40 Urinary Catheter: No Vascular Central Line Catheter: No A/P Assessment and Plan Osteoarthritis S/p left hip arthroplasty 11/28. - weightbearing, wound care and anticoagulation per orthopedic surgery. - pain control with a bowel regimen. - follow h/h. - incentive spirometry. - rehab efforts. HTN, currently controlled Blood pressure elevated s/t surgery. - pain control as needed. - allergic to most blood pressure meds. Asthma, chronic No complaints of dyspnea. - Proair and oxygen as needed. Neuropathy On gabapentin as an outpt. She still complains of nerve pain. - cont 300 mg TID DVT prophylaxis: Per ortho Discharge Planning Patient to DC today to SNF from ortho stand point. Cleared from hospitalist stand point. Gladys Moreira Dec 01, 2017 11:29
[2017-12-01 11:59] VITALS: BP 120/56; PULSE 90; RESP 18; TEMP 97.5; O2SAT 97
== END 2017-12-01 16:06 | DRG 470 ==
LOC: HSDI 05:30 → N06B 15:38
PROVIDERS: ADMIT Orthopaedic Surgery; ATTEND Orthopaedic Surgery
PROC: 0SRB04A Replacement of Left Hip Joint with Ceramic on Polyethylene Synthetic Substitute, Uncemented, Open Approach (ICD-10-PCS; principal; 2017-11-28 06:40)
DX: M16.12 Unilateral primary osteoarthritis, left hip (principal); G62.9 Polyneuropathy, unspecified; I10 Essential (primary) hypertension; D72.829 Elevated white blood cell count, unspecified; E78.5 Hyperlipidemia, unspecified; J45.909 Unspecified asthma, uncomplicated; Z86.711 Personal history of pulmonary embolism; Z87.891 Personal history of nicotine dependence
CPT/HCPCS: 73502; 80053; 83036; 83735; 84100; 84439; 84443; 85014; 85018; 85025; 86850; 86900; 86901; 94150; C1776; C9290; J0131; J0690; J1170; J1580; J1885; J2250; J7120; L1830